=== PATIENT | female | born 1990 | race Caucasian/White ===

== ENCOUNTER 2019-11-24 07:17 | Day surgery (SDC) | payer OTHER, SELFPAY ==
[~2019-11-24] VITALS: Ht 167.6 cm; Wt 104.3 kg
[2019-11-24] MEDS ORDERED: LIDOCAINE 2% 100 MG/5 ML UJET TP ONE (08:52)
[2019-11-24] MEDS ORDERED: LIDOCAINE VISCOUS 2% 20 ML UDC ONE (08:52)
[2019-11-24] MEDS ORDERED: fentaNYL 0.05 MG/ML VIAL ONE (08:52)
[2019-11-24] MEDS ORDERED: MIDAZOLAM 2 MG/2 ML VIAL ONE (08:52)
[2019-11-24] MEDS ORDERED: diphenhydrAMINE 50 MG/ML VIAL ONE (10:19)
[2019-11-24] MEDS ORDERED: fentaNYL 0.05 MG/ML VIAL IVP ONE (10:20)
[2019-11-24] MEDS ORDERED: MIDAZOLAM 2 MG/2 ML VIAL IVP ONE (10:20)
[2019-11-24] MEDS ORDERED: diphenhydrAMINE 50 MG/ML VIAL IVP ONE (10:30)
== END 2019-11-24 12:00 | disposition home or self-care (01) ==
LOC: MDS 07:17 → MMU 07:18 → MDS 12:00
PROVIDERS: ATTEND Internal Medicine Gastroenterology
DX: K62.5 Hemorrhage of anus and rectum (principal); K62.1 Rectal polyp; K59.00 Constipation, unspecified; Z88.0 Allergy status to penicillin; Z11.59 Encounter for screening for other viral diseases; Z98.890 Other specified postprocedural states; Z79.899 Other long term (current) drug therapy
CPT/HCPCS: 43239; 45385; 81025; J1200; J2250; J3010; U0003; 88305; 88312; 88313